=== PATIENT | female | born 1985 | race Caucasian/White ===

== ENCOUNTER 2019-06-13 07:49 | Inpatient (IN) ==
[2019-06-13] MEDS ORDERED: OXYTOCIN 30 UNITS/500 ML BAG IV PRN (08:46)
--- NOTE | 2019-06-13 09:05 | History & Physical Report ---
Date of Service June 13, 2019 Assessment & Plan (1) Post-dates : 34yo at 40.6 weeks GA. IOL for late term . 1. Fetus: Cat 1 2. Labor: AROM clear. Will start oxytocin if unchanged at 4hr 3. Vitals: WNL 4. GBS negative 5. Rh positive (2) Supervision of elderly multigravida: History of Present Illness Primary Care Provider: NO PCP 34yo at 40.6 weeks GA. IOL for late term . Reporting mild contractions. No VB, LOF. Good FM. complicated by AMA. Allergies Allergy/AdvReac Type Severity Reaction Status Date / Time erythromycin base Allergy Mild GI SYMPTOMS Verified 06/12/19 10:29 Home Medications Home Medications Medication Instructions Recorded Confirmed Type ferrous sulfate 325 mg (65 mg 325 mg PO DAILY tab 05/30/19 06/13/19 History iron) tablet loratadine 10 mg capsule 10 mg PO DAILY 05/30/19 06/13/19 History prenat.vits,kinga,[id number]-xxwea 1 tab PO DAILY 05/30/19 06/13/19 History ranitidine HCl 150 mg PO DAILY 05/30/19 06/13/19 History Patient History Medical History Advanced maternal age (AMA) in Surgical History No pertinent past surgical history Family History Grandmother (Paternal) No problems noted. Grandmother (Maternal) Diabetes Social History Preferred Language: Kazakh Communication Ability: Effective [employer] Required: No Beliefs That Will Affect Care: None marital status: Current Living Situation: Spouse Other Information That Helps Us Care for You: No Feels Safe at Home: Yes Safety Concerns: Feels Safe At This Time Smoking Status: Never smoker Hx Alcohol Use: No Hx Substance Use: No Physical Exam Gastrointestinal (Abdomen): normal bowel sounds, soft, nontender, no hepatosplenomegaly Genitourinary: OB Exam Abdomen: + vertex Manual OB Exam: + cervical dilation (3.5), + cervical effacement 50%, + station -2 and + amniotic fluid clear OB Exam Monitor Tracing: + external FHT monitor used, + external uterine monitor used, + category I and + normal FHT variability Results & Data Vital Signs (Past 12 Hours) Vital Signs Temp Pulse Resp BP 06/13/19 08:08 36.6 C 16 06/13/19 08:05 86 103/67
[2019-06-13 09:26] LABS: Hematocrit (blood only) 33.9 % (37-47); Hemoglobin 11.1 g/dL (12.0-16.0); Mean Corpuscular Volume 82.3 fL (80-100); Platelet Count 203 K/uL (130-400); RDW Coefficient of Variation 15.9 % (11.5-14.5); Red Blood Count 4.12 M/uL (4.2-5.4); White Blood Count 7.97 K/uL (4.8-10.8)
[2019-06-13 09:50] LABS: Mean Corpuscular Hgb Conc 32.7 g/dL (32-36)
[2019-06-13] MEDS: OXYTOCIN 30 UNITS/500 ML BAG IV PRN (12:28)
[2019-06-13] MEDS: LACTATED RINGER'S 1,000 ML IV PRN ×4 (12:28→20:17)
--- NOTE | 2019-06-13 14:56 | Labor Progress Brief Note ---
Date of Service June 13, 2019 Subjective Reason For Note: Routine Evaluation feeling more pain with ctx. ctx have been more regular with pitocin, still leaking clear fluid Assessment & Plan (1) Post-dates : (2) Supervision of elderly multigravida: some cx change. feels she wants epidural now. c/w pit. consult anesth categ 1 fetus. Physical Exam Constitutional: WD/WN, vitals as above Genitourinary: Manual OB Exam: + cervical dilation 4 cm, + cervical effacement 70%, + station -2 and + amniotic fluid clear OB Exam Monitor Tracing: + external FHT monitor used (130 mod variability,), + external uterine monitor used (q3) and + category I Results & Data Vital Signs (Past 12 Hours) Vital Signs Temp Pulse Resp BP 06/13/19 14:14 73 16 105/66 06/13/19 13:01 97.9 F 74 20 99/60 L 06/13/19 11:49 76 102/69 06/13/19 11:48 98.2 F 20 06/13/19 10:43 97.9 F 80 16 95/65 L 06/13/19 08:08 97.9 F 16 06/13/19 08:05 86 103/67
[2019-06-13] MEDS ORDERED: BUPIVACAINE 0.25% 30 ML VIAL ONE ×2 (14:58→18:17)
[2019-06-13] MEDS ORDERED: fentaNYL citrate 100 MCG/2 ML VIAL ONE (14:59)
[2019-06-13] MEDS ORDERED: ePHEDrine sulfate 50 MG/ML AMP ONE (14:59)
[2019-06-13] MEDS ORDERED: fentaNYL 2MCG/ML ROPIV 1.25MG/ML 100 ML BAG EPI ONE (15:00)
[2019-06-13] MEDS ORDERED: NALOXONE HCL 1 MG in SODIUM CHLORIDE 0.9% 1000ML 1,000 ML IV PRN (15:37)
[2019-06-13] MEDS ORDERED: NALBUPHINE HCL INJ 10 MG/ML AMP IV PRN (15:37)
[2019-06-13] MEDS ORDERED: NALOXONE HCL 0.4 MG/1 ML VIAL/CARP IV PRN (15:37)
[2019-06-13] MEDS ORDERED: ePHEDrine sulfate 50 MG/ML AMP IV PRN (15:37)
[2019-06-13] MEDS ORDERED: ONDANSETRON INJ 2 MG/ML 2 ML VIAL IV PRN (15:37)
[2019-06-13] MEDS ORDERED: fentaNYL 2MCG/ML ROPIV 1.25MG/ML 100 ML BAG EPI PRN (15:37)
[2019-06-13] MEDS ORDERED: DiphenhydrAMINE HCL 50 MG/ML VIAL IV PRN (15:37)
--- NOTE | 2019-06-13 15:40 | Anesthesiology Consultation ---
Date of Service June 13, 2019 Assessment & Plan Chart Review Chart Review: Patient NOT seen in Pre Admission Testing and Acceptable Risk for Labor Epidural Consults Requested none ASA ASA2 Proposed Anesthesia Anesthesia Type: Labor Epidural and CSE Risk / Benefits Reviewed With: PT / POA / Parent / Guardian, Accepts Plan and Informed Consent Obtained History Height/Weight Height: 5 ft 5 in Weight: 69.853 kg Allergies Allergy/AdvReac Type Severity Reaction Status Date / Time erythromycin base Allergy Mild GI SYMPTOMS Verified 06/12/19 10:29 Medications Home Medications Medication Instructions Recorded Confirmed Last Taken ferrous sulfate 325 mg (65 mg 325 mg PO DAILY tab 05/30/19 06/13/19 Unknown iron) tablet loratadine 10 mg capsule 10 mg PO DAILY 05/30/19 06/13/19 Unknown prenat.vits,kinga,iol-iuym-uxwdy 1 tab PO DAILY 05/30/19 06/13/19 Unknown ranitidine HCl 150 mg PO DAILY 05/30/19 06/13/19 Unknown Active Medications Generic Name Dose Route Start Last Admin Trade Name Junq PRN Reason Stop Dose Admin Lactated Ringer's 1,000 mls @ 125 mls/hr 06/13/19 08:46 06/13/19 15:33 Lr IV 06/15/19 08:45 999 mls/hr .Q8H PRN Administration L&D Protocol Protocol Oxytocin 30 units in 500 mls @ 8 mls/hr 06/13/19 08:46 06/13/19 14:30 Pitocin IV 06/15/19 08:45 0.48 units/hr .Q24H PRN 8 mls/hr Labor Induction/Augmentation Titration Protocol 0.48 UNITS/HR NPO Date Last Intake of Fluids: 06/13/19 Time Last Intake of Fluids: 09:00 Date Last Intake of Solids: 06/13/19 Time Last Intake of Solids: 07:00 Past Medical History Medical History Advanced maternal age (AMA) in Exercise / Class Metabolic Activity II 4-5 Yardwork/Stairs/Walk up hill Past Family History Family History Grandmother (Paternal) No problems noted. Grandmother (Maternal) Diabetes Past Surgical History Surgical History No pertinent past surgical history Past Anesthesia History No Hx of Anesthesia Complications and No Family Hx of Anesthesia Complications Social History Smoking Status: Never smoker Hx Alcohol Use: No Hx Substance Use: No Review of Systems no chest pain or sob Physical Exam Vital Signs Last Vital Signs Temp 37.0 C 06/13/19 15:00 Pulse 73 06/13/19 15:37 Resp 18 06/13/19 15:00 BP 112/68 06/13/19 14:55 Pulse Ox 100 06/13/19 15:37 ENMT Mouth: no TMJ abnormality Thyromental Distance: > or= 3.5 Finger Breadths Mallampati Class: II Neck normal visual inspection Respiratory normal respiratory effort Auscultation: lungs clear to auscultation bilaterally Cardiovascular Rate/Rhythm: regular rate and regular rhythm Musculoskeletal Spine: normal cervical ROM Neurologic moves all extremities Psychiatric Orientation: alert and oriented x 3 Testing Laboratory Results 06/13/19 08:53
[2019-06-13] MEDS ORDERED: Nursing to Pharmacy Communication ONE (18:52)
--- NOTE | 2019-06-13 22:59 | Delivery Summary ---
DATE OF OPERATION: 06/13/2019 PROCEDURE: Normal spontaneous vaginal delivery with first degree laceration repair. SURGEON: Chip Anderson MD. PREOPERATIVE DIAGNOSES: 1. Single intrauterine at 40 weeks 6 days gestational age. 2. Advanced maternal age. POSTOPERATIVE DIAGNOSES 1. Single intrauterine at 40 weeks 6 days gestational age. 2. Advanced maternal age. 3. Status post delivery. ESTIMATED BLOOD LOSS: 200 mL. DRAINS: None. FLUIDS: Continuous lactated Ringer. URINE OUTPUT: Not measured. COMPLICATIONS: None. FINDINGS: Viable female infant with weight pending, Apgars of 8 and 9 at one and five minutes, respectively. INDICATIONS: Lilia is a 34-year-old G2, P1-0-0-1, admitted at 40 weeks 6 days gestational age for late term induction of labor. At the time of admission, the patient was found to be 3.5 cm dilated, 50% effaced, -2 station. The patient underwent artificial rupture of membranes for clear fluid. To start augmentation process, she was allowed a 4-hour trial of labor without augmentation. On reevaluation, the patient was noted to be unchanged and was started on oxytocin per regular protocol. The patient continued to progress in labor, progressed to complete-complete +2 station, at which time she felt the urge to push. The patient pushed for approximately 2 contractions to achieve delivery. The patient did receive an epidural for anesthesia. DESCRIPTION OF PROCEDURE: The patient progressed to 10 cm dilated, 100% effaced, +____ station, pushed over intact perineum with epidural anesthesia and delivered a viable female , weight and Apgars as noted above. Head of the delivered in YESSICA position, rest into right transverse. No nuchal cord was noted. Body and shoulders quickly followed. was noted to be vigorous immediately after delivery and a 2-minute delayed cord clamping was initiated per parents' preference. The cord was then double clamped and cut. remained on maternal abdomen secondary to being well, vigorous at that time. Cord blood was then obtained. Attention was then turned to deliver the placenta, which was delivered intact, 3-vessel cord, with gentle cord traction. Inspection of the perineum, vagina, and cervix noted a first degree perineal laceration, which was repaired with 0 Vicryl in continuous running stitch. Needle, sponge and instrument counts were correct at the completion of the case. I attest to the content of the Intraoperative Record and any orders documented therein. Any exception s are noted below.
--- NOTE | 2019-06-14 00:05 | Anesthesia Procedure Note ---
Date of Service June 14, 2019 Anesthesia Post Epidural Note Vital Signs Vital Signs: Temp Pulse Resp BP Pulse Ox 36.5 C 86 18 93/63 L 99 06/13/19 18:43 06/13/19 23:57 06/13/19 23:44 06/13/19 23:57 06/13/19 21:37 Pain Intensity Bilateral Abdomen: Pain Intensity: 0 Notes Mental Status: alert / awake / arousable and participated in evaluation Nausea / Vomiting: adequately controlled Pain: adequately controlled Airway Patency, RR, SpO2: stable & adequate BP & HR: stable & adequate Hydration State: stable & adequate Neuraxial Anesthesia: was administered and sensory block is resolving Anesthetic Complications: no major complications apparent and Pt Satisfied with anesthetic care Epidural: Removed without complications and With tip intact
[2019-06-14] MEDS ORDERED: SUPERCREAM 0.870% 15 GM JAR EXT PRN (02:13)
[2019-06-14] MEDS ORDERED: OXYTOCIN 30 UNITS/500 ML BAG IV PRN (02:13)
[2019-06-14] MEDS ORDERED: DIPHTHERIA/TETANUS/PERTUSSIS 0.5 ML SYR/VIAL IM ONE (02:13)
[2019-06-14] MEDS ORDERED: BENZOCAINE 20% AER SPR 82.5 GM CAN EXT PRN (02:13)
[2019-06-14] MEDS ORDERED: BISACODYL 10 MG SUPP PR PRN (02:13)
[2019-06-14] MEDS ORDERED: HYDROCORTISONE ACETATE 25 MG SUPP PR PRN (02:13)
[2019-06-14] MEDS: IBUPROFEN 600 MG TAB PO PRN ×3 (02:44→17:37)
[2019-06-14] MEDS: OXYTOCIN 30 UNITS/500 ML BAG IV PRN (05:45)
[2019-06-14] MEDS ORDERED: METHYLERGONOVINE MALEATE 0.2 MG/ML AMP ONE (06:07)
[2019-06-14] MEDS ORDERED: METHYLERGONOVINE MALEATE 0.2 MG/ML AMP IM STA (06:08)
[2019-06-14] MEDS: ACETAMINOPHEN 325 MG TAB PO PRN ×2 (06:27→20:26)
--- NOTE | 2019-06-14 08:07 | Obstetrical Progress Note ---
Date of Service <Vi Sosa MD - Last Filed: 06/14/19 08:07> June 14, 2019 Assessment & Plan <Vi Sosa MD - Last Filed: 06/14/19 08:07> (1) Post-dates : (2) Encounter for care and examination after delivery: PPD1 after IOL for postdates and on 06/13. Delivery complicated by post hemorrhage. Currently complaining of dizziness and lightheadedness. Moderate lochia, less after multiple large clots manually removed by OB. Hg 11.1 on 06/13, awaiting today's lab results to monitor Hg stabilization. Has received fluids and pit to help uterus stay firm and maintain blood pressure. Continue monitoring vitals, headache/dizziness symptoms, Hg status for post- hemorrhage. Subjective <Vi Sosa MD - Last Filed: 06/14/19 08:07> Voiding: no voiding problems Passing Gas:: Yes Diet Tolerance:: regular diet Lochia:: Moderate Feeding Type:: breast feeding Current Pain Level(1-10): 0 Constitutional: + fatigue and + weakness; no fever and no chills Eyes: no diplopia and no worsening vision Respiratory: no cough and no dyspnea No shortness of breath Cardiovascular: + edema; no chest pain, no syncope and no calf pain Breast: no breast pain Gastrointestinal: + cramping; no abdominal pain, no nausea, no vomiting, no constipation and no diarrhea/loose stools Genitourinary (female): no dysuria and no difficulty urinating Neurologic: + headache(s) Physical Exam <Vi Sosa MD - Last Filed: 06/14/19 08:07> Constitutional well developed and well nourished Respiratory normal respiratory effort; no respiratory distress, no labored breathing and no cough Auscultation: no crackles, no rales, no rhonchi and no wheezes Cardiovascular Rate/Rhythm: regular rate and regular rhythm Heart Sounds: no gallop, no murmur and no cardiac rub Extremities: + pedal edema Gastrointestinal (Abdomen) Inspection/Auscultation: + abdomen distended and normal bowel sounds Percussion/Palpation: + abdomen tender and abdomen soft; no guarding Genitourinary Uterus firm some tenderness to palpation. Results & Data <Vi Sosa MD - Last Filed: 06/14/19 08:07> Vital Signs (Past 12 Hours) Vital Signs Temp Pulse Resp BP Pulse Ox 06/14/19 05:45 70 18 102/68 99 06/14/19 02:55 36.4 C L 78 18 96/62 L 97 06/14/19 00:57 93 H 103/64 06/14/19 00:42 77 103/63 06/14/19 00:27 90 18 103/72 06/14/19 00:12 87 96/64 L 06/13/19 23:57 86 93/63 L 06/13/19 23:44 86 18 99/59 L 06/13/19 23:13 85 18 94/62 L 06/13/19 22:57 92 H 90/61 L 06/13/19 22:42 76 101/65 06/13/19 22:40 76 18 101/65 06/13/19 22:27 81 99/72 L 06/13/19 22:25 75 18 96/61 L 06/13/19 22:12 75 96/61 L 06/13/19 22:10 18 06/13/19 21:58 86 98/63 L 06/13/19 21:55 18 06/13/19 21:43 78 92/57 L 06/13/19 21:42 80 88/61 L 06/13/19 21:40 18 06/13/19 21:37 78 99 06/13/19 21:32 78 99 06/13/19 21:27 88 110/60 100 06/13/19 21:22 94 H 100 06/13/19 21:21 84 79 L 06/13/19 21:17 76 99 06/13/19 21:12 77 110/65 100 06/13/19 21:07 75 100 06/13/19 21:02 74 100 06/13/19 20:58 75 108/63 06/13/19 20:57 71 100 06/13/19 20:52 76 100 06/13/19 20:47 73 100 06/13/19 20:43 78 18 107/59 L 06/13/19 20:42 69 100 06/13/19 20:37 77 100 06/13/19 20:32 77 100 06/13/19 20:27 84 105/64 100 06/13/19 20:22 78 99 06/13/19 20:18 93 H 92 06/13/19 20:17 82 97 06/13/19 20:14 75 16 101/63 06/13/19 20:12 80 100 06/13/19 20:07 77 98 06/13/19 20:02 71 100 <Chip Anderson MD - Last Filed: 06/14/19 08:42> Co-Signing Physician Notes Patient had increased VB about 5am and ~400mL of blood clot removed from uterus. Total EBL for delivery ~600ml. Patient overall doing well this am. H/H this am 10.3/31.7. Otherwise agree with the above findings and plan. Routine care
[2019-06-14 08:21] LABS: Hematocrit (blood only) 31.7 % (37-47); Hemoglobin 10.3 g/dL (12.0-16.0)
[2019-06-14] MEDS: METHYLERGONOVINE MALEATE 0.2 MG TAB PO SCH ×4 (09:14→20:27)
[2019-06-14] MEDS: DOCUSATE SODIUM 100 MG CAP PO SCH ×2 (09:14→20:27)
[2019-06-14] MEDS: PRENATAL VITAMIN 1 TAB PO SCH (09:14)
[2019-06-15] MEDS: IBUPROFEN 600 MG TAB PO PRN ×2 (00:08→06:15)
--- NOTE | 2019-06-15 06:58 | Obstetrical Progress Note ---
Date of Service June 15, 2019 Assessment & Plan (1) Encounter for care and examination after delivery: doing well, stable for d/c home, instructions reviewed. f/u 6wk pp check up. Day #:: 2 Subjective Ambulation: ambulating normally Voiding: no voiding problems Diet Tolerance:: regular diet Lochia:: Small Feeding Type:: breast feeding no complaints. ready for d/c home Physical Exam Constitutional WD/WN, vitals as above Respiratory normal respiratory effort, lungs clear to auscultation Cardiovascular Rate/Rhythm: regular rate and regular rhythm Gastrointestinal (Abdomen) Inspection/Auscultation: abdomen normal to inspection Percussion/Palpation: abdomen soft fundus firm 2 cm below umbilicus Musculoskeletal nt calves Neurologic grossly normal Psychiatric A+Ox3, euthymic affect Results & Data Vital Signs (Past 12 Hours) Vital Signs Temp Pulse Resp BP 06/14/19 20:20 98.4 F 66 18 103/70
[2019-06-15] MEDS: PRENATAL VITAMIN 1 TAB PO SCH (09:41)
[2019-06-15] MEDS: DOCUSATE SODIUM 100 MG CAP PO SCH (09:41)
[2019-06-15] MEDS ORDERED: BISACODYL 5 MG TABEC PO SCH (20:00)
== END 2019-06-15 12:45 | disposition home or self-care (01) | DRG 806 ==
LOC: 4S1 07:49 → 4S2 06-14 02:50